=== PATIENT | female | born 2000 | race Two or more races ===

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

== ENCOUNTER 2021-04-01 20:46 | Emergency (ER) | payer MEDICAID ==
[~2021-04-01] VITALS: Ht 162.6 cm; Wt 68.5 kg
[2021-04-01 21:05] VITALS: BP 138/90
--- NOTE | 2021-04-01 21:51 | NUR ---
pt signed waiver. Rad made aware
--- NOTE | 2021-04-01 21:55 | NUR ---
rad at bed side
[2021-04-01] MEDS ORDERED: IBUP-1955 PO (22:11)
[2021-04-01] MEDS ORDERED: CYCL5TAB PO (22:11)
== END 2021-04-01 22:54 | disposition home or self-care (01) ==
LOC: ER 20:49
DX: M25.531 Pain in right wrist (principal); M25.512 Pain in left shoulder; R10.2 Pelvic and perineal pain; M25.551 Pain in right hip; M25.552 Pain in left hip; V49.49XA Driver injured in collision with other motor vehicles in traffic accident, initial encounter; Y93.89 Activity, other specified; Y92.413 State road as the place of occurrence of the external cause; Y99.8 Other external cause status
CPT/HCPCS: 72170-TC; 73030-TC; 73110